=== PATIENT | female | born 1980 | race Caucasian/White ===

== ENCOUNTER → 2016-11-24 | Outpatient (CLI) | payer MEDICAID ==
[~2016-11-24] MED LIST: CIPRO 500MG TA500 MG PO; CLINDAMYCIN HC300 MG PO; KEFLEX 500MG.500 MG PO; LORTAB 5/500 501 TAB PO; NOMEDS *; PHENERGAN 25MG.25 M1 PO
[2016-11-24 19:45] LABS: LYMPH # 1.6 K/mm3 (0.7-4.5); LYMPH % 23.2 % (10-50.0)
[2016-11-24 19:55] LABS: HEMOGLOBIN 9.2 g/dL (12.2-16.2)
[2016-11-24 20:36] LABS: BUN 10 mg/dL (7-18)
[2016-11-24 21:28] LABS: GFR (ESTIMATED) 95 ML/MIN (59-)
[2016-11-26 08:43] LABS: Folate (Folic Acid) 9.9 ng/mL (>3.0); Vitamin D, 25-Hydroxy 28.8 ng/mL (30.0-100.0)
== END ==
LOC: LAB 19:34
PROVIDERS: Physician Assistant
DX: R53.83 Other fatigue (principal); E55.9 Vitamin D deficiency, unspecified

== ENCOUNTER → 2017-02-24 | Outpatient (CLI) | payer MEDICAID ==
[2017-02-24 15:30] LABS: LYMPH # 1.2 K/mm3 (0.7-4.5); LYMPH % 20.7 % (10-50.0)
[2017-02-24 15:36] LABS: HEMOGLOBIN 11.3 g/dL (12.2-16.2)
== END ==
LOC: LAB 14:45
PROVIDERS: Physician Assistant
DX: E55.9 Vitamin D deficiency, unspecified (principal); E03.9 Hypothyroidism, unspecified; D50.9 Iron deficiency anemia, unspecified